=== PATIENT | female | born 1965 | race Asian ===

== ENCOUNTER 2017-12-13 13:02 | Emergency (ER) | payer OTHER ==
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
[2017-12-13] MEDS: DIPH,PERTUSS(ACELL),TET VAC/PF 0.5 ML DISP.SYRIN IM SCH (13:29)
[2017-12-13] MEDS: KETOROLAC TROMETHAMINE 60 MG/2 ML VIAL IM ONE (13:29)
[2017-12-13] MEDS ORDERED: DIPH,PERTUSS(ACELL),TET VAC/PF 0.5 ML DISP.SYRIN IM ONE (13:31)
[2017-12-13 14:54] VITALS: BP 118/68
--- NOTE | 2017-12-13 20:05 | Diagnostic Imaging Report ---
DEMOND RAMOS [facility] [address] [facility] [address] [address] Report Submission Date: December 13, 2017 2:04:33 PM CDT Patient Study Name: GENNA MORALES Date: December 13, 2017 1:47:04 PM CDT Modality Type: DX Gender: F Description: LOWER EXTREMITY : 63 Institution: [facility] Physician: DEMOND RAMOS Left ankle 3 views Clinical history pain Technique: AP lateral oblique Findings: The ankle is unremarkable. No ankle fracture seen. Sclerosis is present in the body the calcaneus possibly representing an old healed fracture. No acute fracture lines are seen in the calcaneus. Impression: No acute ankle pathology Sclerosis of the body the calcaneus Electronically signed on December 13, 2017 2:04:33 PM CDT by: Jake DIMAS
== END 2017-12-13 14:52 ==
LOC: ED 13:02
DX: S93.402A Sprain of unspecified ligament of left ankle, initial encounter (principal); Y93.55 Activity, bike riding
CPT/HCPCS: 73610; 90715; J1885; L4350; 96372

== ENCOUNTER 2017-12-18 15:28 | Outpatient (CLI) | payer OTHER ==
--- NOTE | 2017-12-18 17:52 | Diagnostic Imaging Report ---
DOMINIQUE VALDEZ [facility] [address] [facility] [address] [place] [address]. [id number] Report Submission Date: December 18, 2017 3:54:08 PM CDT Patient Study Name: GENNA MORALES Date: December 18, 2017 3:35:41 PM CDT Modality Type: DX Gender: F Description: LOWER EXTREMITY : 63 Institution: [facility] Physician: DOMINIQUE VALDEZ Examination: Plain film left heel. History: LEFT CALCANEUS, PAIN AND SWELLING IN LEFT HEEL AFTER FALL X5 DAYS AGO ( Hx) Comparison exams: None provided Findings: 2 views of the left heel/calcaneus demonstrates a linear lucency involving the mid calcaneal region. No dislocation. No calcaneal spurs. No soft tissue irregularity. No joint effusion. Impression: Possible nondisplaced mid calcaneal fracture. Electronically signed on December 18, 2017 3:54:08 PM CDT by: Amando DIMAS
== END 2017-12-18 15:30 ==
LOC: RAD 15:28
PROVIDERS: ATTEND Family Medicine
DX: M79.672 Pain in left foot (principal)
CPT/HCPCS: 73650

== ENCOUNTER 2018-04-02 09:24 | Outpatient (CLI) | payer OTHER ==
[2018-04-02 11:33] LABS: MEAN CORPUSCULAR HEMOGLOBIN 30.6 pg (28.0-34.0); MEAN CORPUSCULAR VOLUME 91.1 fl (80.0-100.0)
[2018-04-02 14:06] LABS: eGFR (Non-African) > 60
== END 2018-04-02 09:25 ==
LOC: LAB 09:24
PROVIDERS: ATTEND Family Medicine
DX: Z00.00 Encounter for general adult medical examination without abnormal findings (principal)
CPT/HCPCS: 36415; 80053; 80061; 85027